=== PATIENT | male | born 1950 | race Caucasian/White ===

== ENCOUNTER 2023-03-22 12:57 | Outpatient (CLI) | payer MEDICARE, SELFPAY ==
--- NOTE | ~2023-03-22 | PE_ITS ---
EXAMINATION: PET_PETPSMAST_PT DATE: 03/23/2023 14:30 INDICATION: Prostate cancer TECHNIQUE: 10.113 mCi of pipflufolastat F-18 (18-F-DCFPyL) was administered i.v. Low dose computed t omography (CT) images were acquired from the base of the brain to the base of the brain to the proxim al thighs for attenuation correction and anatomic localization. Positron emission tomography (PET) im ages were acquired in the same distribution beginning 109 minutes after injection. Images including f used PET/CT images were reconstructed in axial, coronal, and sagittal planes. Automated exposure cont rol technique was employed. The dose-length product was 834.28mGy-cm. COMPARISON: None FINDINGS: Head/neck: Typical pattern of symmetric physiologic increased activity in the lacrimal, parotid and submandibula r glands as well as along the mucosa of the nasal and oral cavities, the lisa-, naso- and hypopharynx, the glottis and esophagus. No pathologically enlarged cervical lymphadenopathy or suspicious foci of increased uptake in the visualized head or neck. Chest: Groundglass opacities and volume loss consistent with atelectasis in the bilateral lower lobes and de pendent upper lobes. Additional discoid atelectasis in the right upper lobe and lingula. No suspiciou s pulmonary nodules, pneumonia or pleural effusion. Mild cardiomegaly. Minimal atherosclerotic higgins ry artery calcification. Aortic valve calcific a. No pericardial effusion. Thoracic aorta is normal i n caliber. No pathologically enlarged or PSMA avid thoracic lymphadenopathy. Abdomen/pelvis/proximal thighs: Physiologic renal accumulation and excretion of activity in the kidneys, bladder and along portions o f ureters. Normal degree and slightly heterogenous pattern of increased uptake throughout the liver a nd spleen without radiologic correlate or dominant PSMA avid lesion. Status post cholecystectomy with surgical clips at the gallbladder fossa. Pancreas and bilateral adrenal glands are normal. Moderate uptake scattered throughout the bowels with typical duodenal and proximal jejunal predominance and wi thout radiologic correlate, also likely physiologic. Prostatomegaly measuring approximately 4.8 x 4.6 cm. 1.5 cm region of prominent increased activity with maximal SUV of 32 at the left posterior aspec t of the enlarged prostate. There is mild PSMA activity bilaterally at the confluence of the seminal vesicles and the prostate with maximal SUV of 6.8 on the left and 5.2 on the right. No other abnormal foci of increased uptake or pathologically enlarged lymphadenopathy in the abdomen, pelvis or proxim al thighs. Musculoskeletal: A few tiny foci at multiple bilateral cervical, lumbar and sacral neural foramina likely represent ph ysiologic uptake in the ganglia. No suspicious lytic, blastic or PSMA avid bone lesions. IMPRESSION: 1. Prominent focus of increased uptake at the left posterior aspect of the enlarged prostate consiste nt with primary prostate cancer. Mild uptake at the junction of the prostate and bilateral seminal ve sicles raising concern for local invasion. No other lesions suspicious for metastatic disease in the neck, chest, abdomen or pelvis. Reviewed, dictated and finalized at location A. IMPRESSION: 1. Prominent focus of increased uptake at the left posterior aspect of the enla rged prostate consistent with primary prostate cancer. Mild uptake at the junct ion of the prostate and bilateral seminal vesicles raising concern for local in vasion. No other lesions suspicious for metastatic disease in the neck, chest, abdomen or pelvis.
== END 2023-03-22 12:58 | disposition home or self-care (01) ==
LOC: ANHIMG 13:05
PROVIDERS: Visit Provider Urology
DX: C61 Malignant neoplasm of prostate (principal)
CPT/HCPCS: 78815; A9595